=== PATIENT | male | born 1955 | race Caucasian/White ===

== ENCOUNTER 2017-01-09 09:33 | Day surgery (SDC) | payer OTHER ==
[2017-01-06 17:17] VITALS: BMI 29.4
[2017-01-09] VITALS (7 sets, daily range): BP systolic 120–147; BP diastolic 75–85; PULSE 62–75; RESP 15–18; Ht 177.8 cm; Wt 91.6 kg
[~2017-01-09] VITALS: Ht 177.8 cm; Wt 91.6 kg
[~2017-01-09 09:33] MED LIST: CEFAZOLIN 1 GM INJ ONE; CEFAZOLIN 2 GM/50 ML (PMX) 50 ML IVPB SCH; SOD CHLORIDE 0.9% 1,000 ML IV SCH
--- NOTE | 2017-01-09 10:37 | RADRPT ---
PROCEDURE: Chest Radiograph. CLINICAL INDICATION: Preop TECHNIQUE: Single frontal chest radiograph. COMPARISON: None available FINDINGS: The cardiomediastinal silhouette is within normal limits. There is mild left greater than right bas ilar atelectasis. No infiltrate or effusion is seen. The bones are intact. IMPRESSION: 1. Mild left greater than right basilar atelectasis. 2. No evidence of acute cardiopulmonary disease. RPTAT: KK .Miguel Angel Christianson MD, MD Date Time Electronically viewed and signed by .Miguel Angel Christianson MD, on 01/09/2017 10:36 .B/
[2017-01-09] MEDS ORDERED: [UNRECOGNIZED DRUG - CODE] PO (10:46)
[2017-01-09] MEDS ORDERED: PROPOFOL 20 ML ONE (11:58)
[2017-01-09] MEDS ORDERED: LIDOCAINE 2% (SDV) 5 ML INJ ONE (11:59)
[2017-01-09] MEDS ORDERED: BUPIVACAINE 0.25% (MPF) 30 ML INJ ONE (12:00)
[2017-01-09] MEDS ORDERED: BUPIVACAINE 0.5% (SDV) 30 ML INJ ONE (12:00)
[2017-01-09] MEDS ORDERED: LIDOCAINE 2% (MDV) 20 ML INJ ONE (12:00)
[2017-01-09] MEDS ORDERED: FENTAnyl 50 MCG/ML VIAL ONE (12:21)
[2017-01-09] MEDS ORDERED: HYDROCODONE/APAP (5/325) TAB PO ONE (13:00)
--- NOTE | 2017-01-09 14:01 | OPR ---
DATE OF OPERATION: 01/09/2017 INDICATION: This is a 61-year-old male with chest basal cell cancer. He requests surgical excision. Risks, alternatives, benefits, and personnel were discussed with the patient. Patient expressed understanding and consents to the operation. PREOPERATIVE DIAGNOSIS: Chest basal cell cancer. POSTOPERATIVE DIAGNOSIS: Chest basal cell cancer. OPERATION PERFORMED: 1. Radical resection of basal cell cancer of the chest with 5 cm size incision and 5 cm x 2 cm size lesion. 2. Localized adjacent tissue transfer with the use of skin flaps with a 10 [place] [address]. 3. Therapeutic injection subcutaneously of lidocaine [place]. [place] [address]. SURGEON: Troy Byrnes MD SPECIMEN: Chest basal cell cancer with surgical markings of short superior, long is left and the skin is anterior. COMPLICATIONS: None. ANESTHESIA: MAC and general. DESCRIPTION OF PROCEDURE: The patient was taken to the OR and prepped and draped in usual sterile fashion. Surgical timeout was performed. IV antibiotics were given. An elliptical incision is made over the chest. Basal cell cancer with approximately 0.5 cm to 1 cm margin in all directions with a 15 blade. Dissection cautery was circumferentially carried around the lesion. There was good hemostasis. Local anesthesia was injected at the beginning of the case with therapeutic injection of subcutaneous Marcaine and lidocaine mixture. There was a 5 x 2 cm sized tissue defect. Due to the large tissue defect, skin flaps were raised and a multilayer closure was performed with interrupted 3-0 Vicryl and skin darek. Dry dressings were applied at the end of the case. Dictated By: TROY BUTLER/GRISELDA Conf#: [id number] DID#: [id number] MTDD
--- NOTE | 2017-01-10 22:03 | RADRPT ---
Vent Rate: 74 bpm RR Interval: 0 msec RI Interval: 152 msec QRS Duration: 90 msec QT Interval: 408 msec QTC Interval: 452 msec P-R-T Baldwin: 62 - -22 - 75 degrees Normal sinus rhythm Nonspecific T wave abnormality Abnormal ECG Electronically Signed By: Kali Harrison [id number]
== END 2017-01-09 14:03 | disposition home or self-care (01) ==
LOC: SDS 09:33
PROVIDERS: ATTEND Surgery
DX: C44.519 Basal cell carcinoma of skin of other part of trunk (principal); I10 Essential (primary) hypertension
CPT/HCPCS: 14000; 71010; 88305; 93005; J0690; J3010; Z7512; Z7610